=== PATIENT | female | born 1945 | race Caucasian/White ===

== ENCOUNTER 2016-11-27 21:34 | Emergency (ER) | payer OTHER, MEDICAID ==
[~2016-11-27] VITALS: Ht 149.9 cm; Wt 59.0 kg
[~2016-11-27 21:34] MED LIST: CELE200C PO; NOR10 PO; OMEP20CA10 PO; TRIA1CAP53 PO
[2016-11-27 21:48] VITALS: BP 127/70; PULSE 95; RESP 18; TEMP 98.7; O2SAT 97
[2016-11-27] MEDS ORDERED: NACL 0.9% 1,000 ML IV ONE (22:14)
[2016-11-27] MEDS ORDERED: ONDANSETRON HCL 4 MG/2 ML VIAL IVP ONE (22:15)
[2016-11-27] MEDS ORDERED: PANTOPRAZOLE SODIUM 40 MG/VIAL (PROTONIX) IVP ONE (22:15)
[2016-11-27 22:51] LABS: HEMATOCRIT 36.8 % (36-48); HEMOGLOBIN 12.7 g/dL (12.0-16.0); MEAN CORPUSCULAR HEMOGLOBIN 30 pg (27-31); MEAN CORPUSCULAR HGB CONC 35 % (32-36); MEAN CORPUSCULAR VOLUME 87 fL (79.0-98.0); PLATELET COUNT (AUTO) 184 K/uL (130-430); RED BLOOD CELL COUNT(AUTO) 4.25 MIL/uL (4.2-6.2); RED CELL DISTRIBUTION WIDTH 14.4 % (9.0-15.0); WHITE BLOOD COUNT (AUTO) 16.6 K/uL (4.8-10.8)
[2016-11-27 22:52] LABS: ANION GAP 8 (5-15); CALCIUM 8.7 mg/dL (8.4-11.0); CHLORIDE 100 mmol/L (98-107); CREATININE 1.14 mg/dL (0.55-1.30); GLUCOSE 134 mg/dL (70-99); SODIUM SERUM 136 mmol/L (136-145); UREA NITROGEN, BLOOD 11 mg/dL (8-21)
[2016-11-27 23:03] LABS: POTASSIUM 2.9 mmol/L (3.5-5.1)
[2016-11-27 23:10] LABS: INFLUENZA A&B ANTIGEN SCREEN NEGATIVE FOR A & B (NEGATIVE); STREPTOCOCCUS A SCREEN (RAPID) NEGATIVE (NEGATIVE)
[2016-11-27] MEDS ORDERED: KCL 20 mEq in 100 mL (PREMIX) 100 ML IV ONE (23:15)
[2016-11-27] MEDS ORDERED: POTASSIUM CHLORIDE 20 MEQ TAB.PRT.SR PO ONE (23:15)
[2016-11-27 23:20] LABS: BAND % (MANUAL) 8 % (0-6); LYMPHOCYTES % (MANUAL) 14 % (20-46); MONOCYTES % (MANUAL) 6 % (0-11)
[2016-11-27 23:21] LABS: BASOPHILS % (MANUAL) 0 % (0-2); EOSINOPHILS % (MANUAL) 0 % (0-7)
[2016-11-27] MEDS ORDERED: cefTRIAXone 1 GM IVPB PREMIX 50 ML IV ONE (23:30)
[2016-11-28 00:15] LABS: BILIRUBIN,URINE NEGATIVE (NEGATIVE); BLOOD, URINE NEGATIVE (NEGATIVE); COLOR,URINE YELLOW (YELLOW); GLUCOSE,URINE NEGATIVE (NEGATIVE); KETONES,URINE 1+ (NEGATIVE); LEUKOCYTE ESTERASE ,URINE 1+ (NEGATIVE); NITRITE, URINE NEGATIVE (NEGATIVE); PH,URINE 6.5 (5.0-8.0); PROTEIN URINE NEGATIVE (NEGATIVE); UROBILINOGEN,URINE 0.2 (0.2-1.0)
[2016-11-28 00:24] LABS: CLARITY/URINE SLIGHTLY HAZY (CLEAR)
[2016-11-28 00:26] LABS: RBC,URINE 0-3 /HPF (0-3)
[2016-11-28 00:27] LABS: BACTERIA,URINE FEW /HPF (None Seen); MUCUS,URINE None Seen /LPF (None Seen)
[2016-11-28] MEDS ORDERED: POTASSIUM CHLORIDE 20 MEQ TAB.PRT.SR PO ONE (01:00)
[2016-11-28 01:05] VITALS: BP 130/73; PULSE 89; RESP 20; TEMP 98.7; O2SAT 98
== END 2016-11-28 01:05 | disposition home or self-care (01) ==
LOC: SED 21:34
DX: J02.9 Acute pharyngitis, unspecified (principal); E87.6 Hypokalemia; K21.9 Gastro-esophageal reflux disease without esophagitis; I10 Essential (primary) hypertension; M54.30 Sciatica, unspecified side
CPT/HCPCS: 36415; 80048; 81000; 85007; 85027; 86403; 86710; 87081; 87086; 96365; 96368; 96375; 99284; C9113; J0696; J2405; J3480; J7030

== ENCOUNTER 2017-06-26 21:07 | Emergency (ER) | payer OTHER, MEDICAID ==
[~2017-06-26] VITALS: Ht 149.9 cm; Wt 63.5 kg
[2017-06-26 21:12] VITALS: BP_SYST 153
--- NOTE | 2017-06-26 21:14 | NUR ---
Placed in room 2. Placed on cardiac monitor technician, blood pressure machine and pulse oximeter. To gown for exam. Side rails up. Report given to Noam LEWIS.
--- NOTE | 2017-06-26 21:15 | NUR ---
Patient arrived to ED a/o x 4 with c/o right sided chest pain x 3 days. Patient reports 10/10 right sided chest wall pain radiating to the right shoulder. Denies cardiac history. Hx. of HTN. Patient appears in acute pain. Denies N/V. Skin warm and dry. c/o SOB upon lying down. Vital signs within normal limits at this time. Will continue to monitor.
--- NOTE | 2017-06-26 21:25 | NUR ---
20 gauge angiocath placed to right AC. Use of asceptic technique. Opsite placed over site. Blood return noted. Blood for lab drawn from site. Flushed with 10 cc of normal saline. No evidence of infiltration noted. Patient tolerated well.
--- NOTE | 2017-06-26 21:55 | NUR ---
ED MD Osea at bedside for medical evaluation.
[2017-06-26 22:13] LABS: BASOPHILS # (AUTO) 0.1 K/uL (0.0-0.2); BASOPHILS % (AUTO) 0.8 % (0.0-2.0); EOSINOPHILS # (AUTO) 0.3 K/uL (0.0-0.4); EOSINOPHILS % (AUTO) 2.8 % (0.0-4.0); HEMATOCRIT 39.1 % (36-48); HEMOGLOBIN 13.3 g/dL (12.0-16.0); LYMPHOCYTES # (AUTO) 3.5 K/uL (1.0-5.5); LYMPHOCYTES % (AUTO) 35.1 % (20.5-51.5); MEAN CORPUSCULAR HEMOGLOBIN 29 pg (27-31); MEAN CORPUSCULAR HGB CONC 34 % (32-36); MEAN CORPUSCULAR VOLUME 86 fL (79.0-98.0); MONOCYTES # (AUTO) 0.8 K/uL (0.0-1.0); MONOCYTES % (AUTO) 7.5 % (1.7-9.3); NEUTROPHILS # (AUTO) 5.3 K/uL (1.8-7.7); NEUTROPHILS % (AUTO) 53.8 % (40.0-70.0); PLATELET COUNT (AUTO) 233 K/uL (130-430); RED BLOOD CELL COUNT(AUTO) 4.55 MIL/uL (4.2-6.2); RED CELL DISTRIBUTION WIDTH 12.8 % (9.0-15.0)
--- NOTE | 2017-06-26 22:20 | NUR ---
Patient ambulated to restroom with assistance. Patient reports increased pain upon ambulation.
[2017-06-26 22:26] LABS: ANION GAP 6 (5-15); CALCIUM 9.8 mg/dL (8.4-11.0); CHLORIDE 106 mmol/L (98-107); GLUCOSE 114 mg/dL (70-99); SODIUM SERUM 142 mmol/L (136-145); UREA NITROGEN, BLOOD 15 mg/dL (8-21)
[2017-06-26 22:40] LABS: POTASSIUM 2.9 mmol/L (3.5-5.1)
[2017-06-26 22:41] LABS: TOTAL BILIRUBIN 0.3 mg/dL (0.0-1.0)
[2017-06-26 22:44] LABS: ALANINE AMINOTRANSFERASE 23 U/L (12-78); ASPARTATE AMINOTRANSFERASE 16 U/L (10-37)
[2017-06-26 22:45] LABS: ALBUMIN 4.3 g/dL (3.4-4.8)
--- NOTE | 2017-06-26 22:45 | NUR ---
Notified by lab, Potassium 2.9. ED MD Dinero made aware.
[2017-06-26 22:52] LABS: BILIRUBIN,URINE NEGATIVE (NEGATIVE); BLOOD, URINE NEGATIVE (NEGATIVE); CLARITY/URINE CLEAR (CLEAR); COLOR,URINE YELLOW (YELLOW); GLUCOSE,URINE NEGATIVE (NEGATIVE); KETONES,URINE NEGATIVE (NEGATIVE); LEUKOCYTE ESTERASE ,URINE 1+ (NEGATIVE); NITRITE, URINE NEGATIVE (NEGATIVE); PROTEIN URINE NEGATIVE (NEGATIVE); UROBILINOGEN,URINE 0.2 (0.2-1.0)
[2017-06-26 22:54] LABS: RBC,URINE 0-3 /HPF (0-3)
[2017-06-26 22:55] LABS: BACTERIA,URINE FEW /HPF (None Seen); MUCUS,URINE None Seen /LPF (None Seen)
[2017-06-26] MEDS ORDERED: KETOROLAC TROMETHAMINE 30 MG VIAL IVP ONE (23:30)
--- NOTE | 2017-06-26 23:30 | NUR ---
ED MD Osea at bedside for medical evaluation.
[2017-06-26] MEDS ORDERED: ONDANSETRON HCL 4 MG/2 ML VIAL IVP ONE (23:45)
[2017-06-26] MEDS ORDERED: HYDROmorphone 1 MG INJ. 1 MG/ML AMPUL IVP ONE (23:45)
[2017-06-27] VITALS: BP_SYST 147
--- NOTE | 2017-06-27 | NUR ---
Patient given written and verbal discharge instructions and verbalizes understanding. ER MD discussed with patient the results and treatment provided. Patient in stable condition. ID arm band removed. IV catheter removed intact and dressing applied, no active bleeding. Rx of ibuprofen and potassium chloride supplement given. Patient educated on pain management and to follow up with PMD. Pain Scale 2/10 tolerable for patient. Opportunity for questions provided and answered.
== END 2017-06-27 | disposition home or self-care (01) ==
LOC: SED 21:07
DX: S29.011A Strain of muscle and tendon of front wall of thorax, initial encounter (principal); K21.9 Gastro-esophageal reflux disease without esophagitis; I10 Essential (primary) hypertension; M94.0 Chondrocostal junction syndrome [Tietze]; E87.6 Hypokalemia; Z79.899 Other long term (current) drug therapy; X58.XXXA Exposure to other specified factors, initial encounter; Y93.89 Activity, other specified; Y92.89 Other specified places as the place of occurrence of the external cause; Y99.8 Other external cause status
CPT/HCPCS: 36415; 71010; 80053; 81000; 83880; 84484; 85025; 87086; 93005; 96374; 99285; J1885

== ENCOUNTER 2018-05-13 08:05 | Emergency (ER) | payer OTHER, MEDICAID ==
[~2018-05-13] VITALS: Ht 139.7 cm; Wt 63.5 kg
[2018-05-13 08:10] VITALS: BP_SYST 154
--- NOTE | 2018-05-13 08:10 | NUR ---
Patient in placed in bed 7, here for abdominal pain and cramping.
--- NOTE | 2018-05-13 08:12 | NUR ---
MD Chinchilla at bedside.
[2018-05-13 08:45] LABS: BASOPHILS # (AUTO) 0.1 K/uL (0.0-0.2); BASOPHILS % (AUTO) 0.5 % (0.0-2.0); EOSINOPHILS # (AUTO) 0.2 K/uL (0.0-0.4); EOSINOPHILS % (AUTO) 1.4 % (0.0-4.0); HEMATOCRIT 40.1 % (36-48); HEMOGLOBIN 13.5 g/dL (12.0-16.0); LYMPHOCYTES # (AUTO) 2.7 K/uL (1.0-5.5); LYMPHOCYTES % (AUTO) 22.8 % (20.5-51.5); MEAN CORPUSCULAR HEMOGLOBIN 29 pg (27-31); MEAN CORPUSCULAR HGB CONC 34 % (32-36); MEAN CORPUSCULAR VOLUME 88 fL (79.0-98.0); MONOCYTES # (AUTO) 0.6 K/uL (0.0-1.0); MONOCYTES % (AUTO) 5.5 % (1.7-9.3); NEUTROPHILS # (AUTO) 8.1 K/uL (1.8-7.7); NEUTROPHILS % (AUTO) 69.8 % (40.0-70.0); PLATELET COUNT (AUTO) 252 K/uL (130-430); RED BLOOD CELL COUNT(AUTO) 4.58 MIL/uL (4.2-6.2); WHITE BLOOD COUNT (AUTO) 11.7 K/uL (4.8-10.8)
[2018-05-13 08:59] LABS: BILIRUBIN,URINE NEGATIVE (NEGATIVE); BLOOD, URINE NEGATIVE (NEGATIVE); CLARITY/URINE CLEAR (CLEAR); COLOR,URINE YELLOW (YELLOW); GLUCOSE,URINE NEGATIVE (NEGATIVE); KETONES,URINE NEGATIVE (NEGATIVE); LEUKOCYTE ESTERASE ,URINE NEGATIVE (NEGATIVE); NITRITE, URINE NEGATIVE (NEGATIVE); PH,URINE 6.5 (5.0-8.0); PROTEIN URINE NEGATIVE (NEGATIVE); UROBILINOGEN,URINE 0.2 (0.2-1.0)
[2018-05-13 08:59] LABS: ANION GAP 8 (5-15); CALCIUM 8.9 mg/dL (8.4-11.0); CHLORIDE 104 mmol/L (98-107); CREATININE 0.96 mg/dL (0.55-1.30); GLUCOSE 108 mg/dL (70-99); SODIUM SERUM 140 mmol/L (136-145); UREA NITROGEN, BLOOD 12 mg/dL (8-21)
[2018-05-13 09:03] LABS: ALANINE AMINOTRANSFERASE 19 U/L (12-78); ALBUMIN 3.7 g/dL (3.4-4.8); ASPARTATE AMINOTRANSFERASE 18 U/L (10-37); LIPASE 162 U/L (73-393); TOTAL BILIRUBIN 0.9 mg/dL (0.0-1.0)
[2018-05-13] MEDS ORDERED: POTASSIUM CHLORIDE 20 MEQ/PKT PACKET PO ONE (09:15)
[2018-05-13] MEDS ORDERED: KETOROLAC TROMETHAMINE 30 MG VIAL IVP ONE (09:15)
[2018-05-13 09:33] VITALS: BP_SYST 155
--- NOTE | 2018-05-13 09:34 | NUR ---
Patient given written and verbal discharge instructions and verbalizes understanding. ER MD discussed with patient the results and treatment provided. Patient in stable condition. ID arm band removed. IV catheter removed intact and dressing applied, no active bleeding. Rx of lactulose given. Patient educated on pain management and to follow up with PMD. Pain Scale . Opportunity for questions provided and answered. Medication side effect fact sheet provided.
== END 2018-05-13 09:33 | disposition home or self-care (01) ==
LOC: SED 08:05
DX: K59.00 Constipation, unspecified (principal); E87.6 Hypokalemia; I10 Essential (primary) hypertension; K21.9 Gastro-esophageal reflux disease without esophagitis; Z79.899 Other long term (current) drug therapy
CPT/HCPCS: 36415; 74021; 80053; 81003; 83690; 85025; 96374; 99285; J1885

== ENCOUNTER 2018-11-14 17:24 | Emergency (ER) | payer OTHER, MEDICAID ==
[~2018-11-14] VITALS: Ht 149.9 cm; Wt 64.4 kg
[2018-11-14 17:24] VITALS: BP_SYST 130
--- NOTE | 2018-11-14 17:24 | NUR ---
BROUGHT BACK TO HALLWAY BED AND TRIAGED. REPORT GIVEN TO VIRY
[2018-11-14 17:30] VITALS: BP_SYST 135
--- NOTE | 2018-11-14 17:40 | NUR ---
patient arrived from home with full mentation. patient states "I've been feelin like dis for a couple days annabel. Everbody sick. my whole body hurts." patient states she did not have a flu shot this year and she doesn't get one. She says she got the flu shot a 3 years ago and got so sick she almost . patient is warm to the touch, and skin is green looking. no other complaint or injury. Addendum: 11/14/18 at 1836 by [email or web address] denies n/v/d of any kind. patient just has a bad productive cough.
--- NOTE | 2018-11-14 17:40 | NUR ---
WICHO Jackson at bedside examining patient.
--- NOTE | 2018-11-14 17:42 | NUR ---
INFLUENZA SWAB SENT TO LAB
[2018-11-14] MEDS ORDERED: ACETAMINOPHEN 500 MG TABLET PO ONE (17:45)
[2018-11-14] MEDS ORDERED: IBUPROFEN 600 MG TABLET PO ONE (17:45)
[2018-11-14] MEDS ORDERED: AZITHROMYCIN 250 MG TABLET PO ONE (18:15)
--- NOTE | 2018-11-14 18:49 | NUR ---
Patient given written and verbal discharge instructions and verbalizes understanding. ER MD discussed with patient the results and treatment provided. Patient in stable condition. Rx of Azithromycin given. Patient educated on pain management and to follow up with PMD. Pain Scale 4/10 and tolerable for patient. Opportunity for questions provided and answered. Medication side effect fact sheet provided.
== END 2018-11-14 18:49 | disposition home or self-care (01) ==
LOC: SED 17:24
DX: R05 Cough (principal); R09.81 Nasal congestion; M79.10 Myalgia, unspecified site; R50.9 Fever, unspecified; K21.9 Gastro-esophageal reflux disease without esophagitis; I10 Essential (primary) hypertension; Z79.899 Other long term (current) drug therapy
CPT/HCPCS: 36415; 71045; 86710; 99284; Q0144

== ENCOUNTER 2021-09-28 16:34 | Emergency (ER) | payer OTHER, MEDICAID ==
[~2021-09-28] VITALS: Ht 149.9 cm; Wt 66.2 kg
[~2021-09-28 16:34] MED LIST changes: -OMEP20CA10 PO; +OMEP20CA15 PO
[2021-09-28 16:55] VITALS: BP_SYST 194
--- NOTE | 2021-09-28 16:55 | NUR ---
Pt to Chair 1 in [facility] for evaluation.
--- NOTE | 2021-09-28 17:00 | NUR ---
Pt AAO and ambulatory reporting right knee pain and that she nearly fell today due to knee giving out. Pt reports that she fell three days ago because of same reason. Pt has history of hypertension and arthritis. Pt reports pain 10/10 on pain scale.
--- NOTE | 2021-09-28 17:05 | NUR ---
Report given to JOSHUA Santacruz who will assume care.
--- NOTE | 2021-09-28 17:30 | NUR ---
RECEIVED PATIENT IN HALLWAY BED. PT IS STABLE, NAD, VSS, SOME MILD LEG AND HIP PAIN. PT AWAITING ED MD ASSESSMENT AND DISPOSITION WITH PLAN OF CARE.
[2021-09-28] MEDS ORDERED: MORPHINE 2 MG/ML INJ. SYRINGE IM ONE (18:15)
[2021-09-28 19:45] VITALS: BP_SYST 155
--- NOTE | 2021-09-28 19:45 | NUR ---
Patient given written and verbal discharge instructions and verbalizes understanding. ER MD discussed with patient the results and treatment provided. Patient in stable condition. ID arm band removed. No IV No Rx given. Patient educated on pain management and to follow up with PMD. Pain Scale 4/10. Opportunity for questions provided and answered. Medication side effect fact sheet provided.
== END 2021-09-28 19:45 | disposition home or self-care (01) ==
LOC: SED 16:34
DX: S83.91XA Sprain of unspecified site of right knee, initial encounter (principal); M25.551 Pain in right hip; I10 Essential (primary) hypertension; K21.9 Gastro-esophageal reflux disease without esophagitis; Z79.899 Other long term (current) drug therapy; W01.0XXA Fall on same level from slipping, tripping and stumbling without subsequent striking against object, initial encounter; Y93.89 Activity, other specified; Y92.89 Other specified places as the place of occurrence of the external cause; Y99.8 Other external cause status
CPT/HCPCS: 72170; 73564; 96372; 99284; J2270

== ENCOUNTER 2023-12-18 14:28 | Inpatient (IN) | payer OTHER ==
[~2023-12-18] VITALS: Ht 149.9 cm; Wt 61.7 kg
[~2023-12-18 14:28] MED LIST changes: +PRED20TA PO
[2023-12-18 14:30] VITALS: BP_SYST 171; PULSE 77; RESP 18; TEMP 97.5; O2SAT 98
[2023-12-18 14:50] LABS: BASOPHILS # (AUTO) 0.1 K/uL (0.0-0.2); BASOPHILS % (AUTO) 1.5 % (0.0-2.0); EOSINOPHILS # (AUTO) 0.2 K/uL (0.0-0.4); EOSINOPHILS % (AUTO) 3.2 % (0.0-4.0); HEMATOCRIT 37.6 % (36-48); HEMOGLOBIN 12.9 g/dL (12.0-16.0); LYMPHOCYTES # (AUTO) 2.5 K/uL (1.0-5.5); MEAN CORPUSCULAR HEMOGLOBIN 30 pg (27-31); MEAN CORPUSCULAR HGB CONC 34 % (32-36); MEAN CORPUSCULAR VOLUME 86 fL (79.0-98.0); MONOCYTES # (AUTO) 0.6 K/uL (0.0-1.0); MONOCYTES % (AUTO) 8.4 % (1.7-9.3); NEUTROPHILS % (AUTO) 52.9 % (40.0-70.0); PLATELET COUNT (AUTO) 219 K/uL (130-430); RED BLOOD CELL COUNT(AUTO) 4.36 MIL/uL (4.2-6.2); RED CELL DISTRIBUTION WIDTH 14.3 % (9.0-15.0); WHITE BLOOD COUNT (AUTO) 7.5 K/uL (4.8-10.8)
[2023-12-18 15:02] LABS: ANION GAP 9 (5-15); CARBON DIOXIDE 28 mmol/L (23-29); CHLORIDE 105 mmol/L (98-107); CREATININE 1.03 mg/dL (0.55-1.30); GLUCOSE 104 mg/dL (74-106); POTASSIUM 3.9 mmol/L (3.5-5.1); SODIUM SERUM 142 mmol/L (136-145); UREA NITROGEN, BLOOD 12 mg/dL (8-21)
[2023-12-18 15:06] LABS: PROTHROMBIN TIME 10.4 SECS (9.5-12.5)
[2023-12-18 15:10] LABS: CREATINE KINASE, TOTAL 94 U/L (26-192); LIPASE 48 U/L (16-77)
[2023-12-18] MEDS: KETOROLAC TROMETHAMINE 15 MG VIAL IVP ONE (15:49)
[2023-12-18] MEDS: ASPIRIN 325 MG TABLET PO ONE (15:51)
[2023-12-18] MEDS: NITROGLYCERIN 0.4 MG TAB.SUBL SL ONE ×2 (15:59→17:40)
[2023-12-18 17:06] VITALS: BP_SYST 153; PULSE 75; O2SAT 98
[2023-12-18] MEDS: cefTRIAXone 1 GM in D5W 50 ML IV SCH (17:30)
[2023-12-18 17:51] LABS: BILIRUBIN,URINE NEGATIVE (NEGATIVE); BLOOD, URINE 1+ (NEGATIVE); CLARITY/URINE CLEAR (CLEAR); COLOR,URINE YELLOW (YELLOW); GLUCOSE,URINE NEGATIVE (NEGATIVE); KETONES,URINE NEGATIVE (NEGATIVE); LEUKOCYTE ESTERASE ,URINE NEGATIVE (NEGATIVE); NITRITE, URINE NEGATIVE (NEGATIVE); PH,URINE 7.5 (5.0-8.0); PROTEIN URINE NEGATIVE (NEGATIVE); UROBILINOGEN,URINE 0.2 (0.2-1.0)
[2023-12-18 18:28] LABS: WBC,URINE 0-3 /HPF (0-3)
[2023-12-18] MEDS: AZITHROMYCIN 500 MG in NS 250 ML IV SCH (18:28)
[2023-12-18 18:29] LABS: BACTERIA,URINE FEW /HPF (None Seen); MUCUS,URINE None Seen /LPF (None Seen)
[2023-12-18 20:05] VITALS: O2SAT 97
[2023-12-18] MEDS: IPRATROPIUM/ALBUTEROL SULFATE 3 ML AMPUL.NEB (DUONEB) INH SCH (20:12)
[2023-12-18] MEDS ORDERED: cefTRIAXone 1 GM VIAL ONE (21:15)
[2023-12-19] VITALS (9 sets, daily range): BP systolic 132–141; PULSE 73–78; RESP 16–18; TEMP 98.2–98.7; O2SAT 94–98
[2023-12-19] MEDS: TEMAZEPAM 15 MG CAPSULE PO SCH (01:20)
[2023-12-19] MEDS: IPRATROPIUM/ALBUTEROL SULFATE 3 ML AMPUL.NEB (DUONEB) INH PRN (02:07)
[2023-12-19 03:50] LABS: ANION GAP 7 (5-15); CALCIUM 8.5 mg/dL (8.4-11.0); CARBON DIOXIDE 27 mmol/L (23-29); CHLORIDE 107 mmol/L (98-107); CREATININE 1.07 mg/dL (0.55-1.30); GLUCOSE 100 mg/dL (74-106); POTASSIUM 3.4 mmol/L (3.5-5.1); SODIUM SERUM 141 mmol/L (136-145); UREA NITROGEN, BLOOD 13 mg/dL (8-21)
[2023-12-19 03:57] LABS: ALANINE AMINOTRANSFERASE 12 U/L (12-78); ALBUMIN 3.1 g/dL (3.4-4.8); ASPARTATE AMINOTRANSFERASE 12 U/L (10-37); CHOLESTEROL 184 mg/dL (<200); HDL CHOLESTEROL 63 mg/dL (>55); TOTAL BILIRUBIN 0.3 mg/dL (0.0-1.0); TOTAL PROTEIN, SERUM 5.9 g/dL (6.4-8.3); TRIGLYCERIDES 93 mg/dL (30-150)
[2023-12-19 04:20] LABS: BASOPHILS # (AUTO) 0.1 K/uL (0.0-0.2); BASOPHILS % (AUTO) 1.2 % (0.0-2.0); EOSINOPHILS # (AUTO) 0.3 K/uL (0.0-0.4); EOSINOPHILS % (AUTO) 3.6 % (0.0-4.0); HEMOGLOBIN 11.5 g/dL (12.0-16.0); LYMPHOCYTES # (AUTO) 2.7 K/uL (1.0-5.5); LYMPHOCYTES % (AUTO) 38.4 % (20.5-51.5); MEAN CORPUSCULAR HEMOGLOBIN 29 pg (27-31); MEAN CORPUSCULAR HGB CONC 34 % (32-36); MEAN CORPUSCULAR VOLUME 86 fL (79.0-98.0); MONOCYTES # (AUTO) 0.7 K/uL (0.0-1.0); NEUTROPHILS # (AUTO) 3.3 K/uL (1.8-7.7); NEUTROPHILS % (AUTO) 46.8 % (40.0-70.0); PLATELET COUNT (AUTO) 199 K/uL (130-430); RED BLOOD CELL COUNT(AUTO) 3.95 MIL/uL (4.2-6.2); RED CELL DISTRIBUTION WIDTH 14.1 % (9.0-15.0); WHITE BLOOD COUNT (AUTO) 7.1 K/uL (4.8-10.8)
[2023-12-19] MEDS: TRIAMTERENE/HYDROCHLOROTHIAZID 1 CAP CAPSULE (DYAZIDE37.5/25) PO SCH (08:55)
[2023-12-19] MEDS: amLODIPine BESYLATE 10 MG TABLET PO SCH (08:56)
[2023-12-19] MEDS: PANTOPRAZOLE SODIUM 40 MG TAB PO SCH (08:56)
[2023-12-19] MEDS: CELECOXIB 200 MG CAPSULE PO SCH (08:56)
[2023-12-19] MEDS ORDERED: OMEPRAZOLE Non-Formulary 20 MG CAPSULE.DR PO SCH (09:00)
[2023-12-19] MEDS ORDERED: predniSONE 20 MG TABLET PO SCH (09:00)
[2023-12-19] MEDS ORDERED: LISI40TA13 PO (09:23)
[2023-12-19] MEDS ORDERED: TRAM50TA2 PO (09:26)
[2023-12-19] MEDS ORDERED: LORA-258 PO (09:26)
[2023-12-19] MEDS: ASPIRIN 81 MG TAB.CHEW PO SCH (09:56)
[2023-12-19] MEDS ORDERED: ASPIRIN 81 MG TAB.CHEW ONE (09:57)
[2023-12-19] MEDS ORDERED: TEMAZEPAM 15 MG CAPSULE PO SCH (21:00)
[2023-12-19] MEDS: POTASSIUM CHLORIDE 20 MEQ TABLET.ER PO ONE (22:36)
[2023-12-19] MEDS ORDERED: MORPHINE 2 MG/ML INJ. SYRINGE IVP PRN (23:00)
[2023-12-19] MEDS ORDERED: NALOXONE HCL 0.4 MG/ML AMP (NARCAN) IVP PRN (23:00)
[2023-12-19] MEDS ORDERED: ACETAMINOPHEN 325 MG TABLET PO PRN (23:00)
[2023-12-20] VITALS (8 sets, daily range): BP systolic 138–148; PULSE 72–82; RESP 16–18; TEMP 97.2–98.2; O2SAT 96–100
[2023-12-20 04:55] LABS: BASOPHILS # (AUTO) 0.1 K/uL (0.0-0.2); BASOPHILS % (AUTO) 1.3 % (0.0-2.0); EOSINOPHILS # (AUTO) 0.4 K/uL (0.0-0.4); EOSINOPHILS % (AUTO) 4.8 % (0.0-4.0); HEMATOCRIT 36.6 % (36-48); HEMOGLOBIN 12.5 g/dL (12.0-16.0); LYMPHOCYTES # (AUTO) 2.4 K/uL (1.0-5.5); LYMPHOCYTES % (AUTO) 29.8 % (20.5-51.5); MEAN CORPUSCULAR HEMOGLOBIN 29 pg (27-31); MEAN CORPUSCULAR HGB CONC 34 % (32-36); MEAN CORPUSCULAR VOLUME 86 fL (79.0-98.0); MONOCYTES # (AUTO) 0.7 K/uL (0.0-1.0); MONOCYTES % (AUTO) 8.2 % (1.7-9.3); NEUTROPHILS # (AUTO) 4.6 K/uL (1.8-7.7); NEUTROPHILS % (AUTO) 55.9 % (40.0-70.0); PLATELET COUNT (AUTO) 209 K/uL (130-430); RED BLOOD CELL COUNT(AUTO) 4.26 MIL/uL (4.2-6.2); RED CELL DISTRIBUTION WIDTH 14.5 % (9.0-15.0); WHITE BLOOD COUNT (AUTO) 8.2 K/uL (4.8-10.8)
[2023-12-20 04:59] LABS: ERYTHROCYTE SEDIMENTATION RATE 5 MM/HR (0-20)
[2023-12-20 05:16] LABS: ANION GAP 8 (5-15); CALCIUM 9.3 mg/dL (8.4-11.0); CARBON DIOXIDE 26 mmol/L (23-29); CHLORIDE 108 mmol/L (98-107); CREATININE 1.06 mg/dL (0.55-1.30); GLUCOSE 101 mg/dL (74-106); POTASSIUM 4.1 mmol/L (3.5-5.1); SODIUM SERUM 142 mmol/L (136-145); UREA NITROGEN, BLOOD 13 mg/dL (8-21)
[2023-12-20] MEDS ORDERED: DOXY100C5 PO (15:27)
[2023-12-20] MEDS ORDERED: PRO40 PO (15:30)
[2023-12-20] MEDS ORDERED: POTASSIUM CHLORIDE 20 MEQ TABLET.ER PO ONE (16:45)
== END 2023-12-20 18:30 | disposition home or self-care (01) | DRG 206 ==
LOC: SED 14:28 → STU 16:13
PROVIDERS: ADMIT Internal Medicine; ATTEND Internal Medicine
DX: J98.4 Other disorders of lung (principal); E44.1 Mild protein-calorie malnutrition; I10 Essential (primary) hypertension; J42 Unspecified chronic bronchitis; K21.9 Gastro-esophageal reflux disease without esophagitis; E87.6 Hypokalemia; Z68.27 Body mass index [BMI] 27.0-27.9, adult
CPT/HCPCS: 36415; 71045; 71250-TC; 80048; 80053; 80061; 81000; 81001; 81015; 82550; 83690; 83735; 83880; 84484; 85025; 85379; 85610; 85651; 85730; 87040; 93005; 93306; 94640; 94760; 96374; 99285; G0378; J0456; J0696; J1885; J7050; J7060

== ENCOUNTER 2024-01-24 08:48 | Outpatient (CLI) | payer OTHER ==
[~2024-01-24 08:48] MED LIST changes: +DOXY100C5 PO; +LISI40TA13 PO; +LORA-258 PO; -PRED20TA PO; +PRO40 PO; +TRAM50TA2 PO; -TRIA1CAP53 PO
== END 2024-01-24 21:00 | disposition home or self-care (01) ==
LOC: SMA 08:48
PROVIDERS: ATTEND Family Medicine
DX: N63.12 Unspecified lump in the right breast, upper inner quadrant (principal); N63.13 Unspecified lump in the right breast, lower outer quadrant; N63.14 Unspecified lump in the right breast, lower inner quadrant; N63.21 Unspecified lump in the left breast, upper outer quadrant; R92.8 Other abnormal and inconclusive findings on diagnostic imaging of breast; N64.89 Other specified disorders of breast
CPT/HCPCS: 76641; 77066

== ENCOUNTER 2024-02-14 09:56 | Outpatient (CLI) | payer OTHER ==
[2024-02-14 10:38] LABS: HEMOGLOBIN 13.6 g/dL (12.0-16.0); LYMPHOCYTES # (AUTO) 2.7 K/uL (1.0-5.5); MONOCYTES # (AUTO) 0.5 K/uL (0.0-1.0); NEUTROPHILS # (AUTO) 3.7 K/uL (1.8-7.7); WHITE BLOOD COUNT (AUTO) 7.4 K/uL (4.8-10.8)
[2024-02-14 10:45] LABS: ALANINE AMINOTRANSFERASE 14 U/L (12-78); ALBUMIN 3.9 g/dL (3.4-4.8); ANION GAP 10 (5-15); ASPARTATE AMINOTRANSFERASE 17 U/L (10-37); CALCIUM 9.2 mg/dL (8.4-11.0); CARBON DIOXIDE 28 mmol/L (23-29); CHLORIDE 105 mmol/L (98-107); CHOLESTEROL 261 mg/dL (<200); GLUCOSE 97 mg/dL (74-106); HDL CHOLESTEROL 80 mg/dL (>55); POTASSIUM 3.6 mmol/L (3.5-5.1); SODIUM SERUM 143 mmol/L (136-145); TOTAL BILIRUBIN 0.6 mg/dL (0.0-1.0); TOTAL PROTEIN, SERUM 7.5 g/dL (6.4-8.3); TRIGLYCERIDES 92 mg/dL (30-150); UREA NITROGEN, BLOOD 13 mg/dL (8-21)
[2024-02-14 10:51] LABS: BASOPHILS # (AUTO) 0.1 K/uL (0.0-0.2); BASOPHILS % (AUTO) 1.5 % (0.0-2.0); EOSINOPHILS # (AUTO) 0.4 K/uL (0.0-0.4); EOSINOPHILS % (AUTO) 4.9 % (0.0-4.0); HEMATOCRIT 39.9 % (36-48); LYMPHOCYTES % (AUTO) 37.2 % (20.5-51.5); MEAN CORPUSCULAR HEMOGLOBIN 29 pg (27-31); MEAN CORPUSCULAR HGB CONC 34 % (32-36); MEAN CORPUSCULAR VOLUME 86 fL (79.0-98.0); MONOCYTES % (AUTO) 6.6 % (1.7-9.3); NEUTROPHILS % (AUTO) 49.8 % (40.0-70.0); PLATELET COUNT (AUTO) 237 K/uL (130-430); RED BLOOD CELL COUNT(AUTO) 4.66 MIL/uL (4.2-6.2)
== END 2024-02-14 19:01 | disposition home or self-care (01) ==
LOC: SLB 09:56
PROVIDERS: ATTEND Internal Medicine Interventional Cardiology
DX: I25.10 Atherosclerotic heart disease of native coronary artery without angina pectoris (principal); I11.9 Hypertensive heart disease without heart failure
CPT/HCPCS: 36415; 80053; 80061; 85025

== ENCOUNTER 2024-04-14 11:50 | Emergency (ER) | payer OTHER ==
[~2024-04-14] VITALS: Ht 165.1 cm; Wt 72.6 kg
[2024-04-14 12:15] VITALS: BP_SYST 139; PULSE 70; RESP 17; TEMP 97.5; O2SAT 98
[2024-04-14 12:26] LABS: BILIRUBIN,URINE NEGATIVE (NEGATIVE); BLOOD, URINE NEGATIVE (NEGATIVE); CLARITY/URINE CLEAR (CLEAR); COLOR,URINE YELLOW (YELLOW); GLUCOSE,URINE NEGATIVE (NEGATIVE); KETONES,URINE NEGATIVE (NEGATIVE); LEUKOCYTE ESTERASE ,URINE NEGATIVE (NEGATIVE); NITRITE, URINE NEGATIVE (NEGATIVE); PROTEIN URINE NEGATIVE (NEGATIVE); UROBILINOGEN,URINE 0.2 (0.2-1.0)
[2024-04-14 12:31] LABS: BASOPHILS # (AUTO) 0.1 K/uL (0.0-0.2); BASOPHILS % (AUTO) 1.4 % (0.0-2.0); EOSINOPHILS # (AUTO) 0.2 K/uL (0.0-0.4); EOSINOPHILS % (AUTO) 3.2 % (0.0-4.0); HEMATOCRIT 39.5 % (36-48); HEMOGLOBIN 13.2 g/dL (12.0-16.0); LYMPHOCYTES # (AUTO) 3.4 K/uL (1.0-5.5); LYMPHOCYTES % (AUTO) 44.3 % (20.5-51.5); MEAN CORPUSCULAR HEMOGLOBIN 29 pg (27-31); MEAN CORPUSCULAR HGB CONC 33 % (32-36); MEAN CORPUSCULAR VOLUME 87 fL (79.0-98.0); MONOCYTES # (AUTO) 0.6 K/uL (0.0-1.0); MONOCYTES % (AUTO) 7.7 % (1.7-9.3); NEUTROPHILS # (AUTO) 3.3 K/uL (1.8-7.7); NEUTROPHILS % (AUTO) 43.4 % (40.0-70.0); PLATELET COUNT (AUTO) 219 K/uL (130-430); RED BLOOD CELL COUNT(AUTO) 4.56 MIL/uL (4.2-6.2); RED CELL DISTRIBUTION WIDTH 13.9 % (9.0-15.0); WHITE BLOOD COUNT (AUTO) 7.7 K/uL (4.8-10.8)
[2024-04-14] MEDS: ONDANSETRON 4 MG ODT TAB PO ONE (12:34)
[2024-04-14 12:37] LABS: PROTHROMBIN TIME 10.4 SECS (9.5-12.5)
[2024-04-14 12:42] LABS: ALANINE AMINOTRANSFERASE 11 U/L (12-78); ALBUMIN 3.9 g/dL (3.4-4.8); ANION GAP 5 (5-15); ASPARTATE AMINOTRANSFERASE 13 U/L (10-37); CALCIUM 9.6 mg/dL (8.4-11.0); CARBON DIOXIDE 31 mmol/L (23-29); CHLORIDE 105 mmol/L (98-107); CREATININE 1.07 mg/dL (0.55-1.30); GLUCOSE 93 mg/dL (74-106); POTASSIUM 4.8 mmol/L (3.5-5.1); SODIUM SERUM 141 mmol/L (136-145); TOTAL BILIRUBIN 0.4 mg/dL (0.0-1.0); TOTAL PROTEIN, SERUM 7.3 g/dL (6.4-8.3); UREA NITROGEN, BLOOD 16 mg/dL (8-21)
[2024-04-14 12:57] LABS: AMYLASE 82 U/L (0-100); BILIRUBIN,DIRECT 0.1 mg/dL (0.0-0.3); LACTATE DEHYDROGENASE 168 U/L (81-234); LIPASE 57 U/L (16-77)
[2024-04-14] MEDS ORDERED: ONDA-8 TL (13:56)
[2024-04-14] MEDS ORDERED: OMEP20CA15 PO (13:56)
[2024-04-14 14:09] VITALS: BP_SYST 139; PULSE 70; RESP 17; TEMP 97.5; O2SAT 98
== END 2024-04-14 14:10 | disposition home or self-care (01) ==
LOC: SED 11:50
DX: R10.13 Epigastric pain (principal); R11.2 Nausea with vomiting, unspecified; K21.9 Gastro-esophageal reflux disease without esophagitis; I10 Essential (primary) hypertension; Z79.899 Other long term (current) drug therapy; Z79.2 Long term (current) use of antibiotics
CPT/HCPCS: 99284; 74176; 80076; 80048; 81001; 82150; 83615; 83690; 85025; 85610; 85730; 84484; 36415; 83605; 82397; Q0162; 81003

== ENCOUNTER 2024-04-25 12:54 | Emergency (ER) | payer OTHER ==
[~2024-04-25] VITALS: Ht 149.9 cm; Wt 59.0 kg
[~2024-04-25 12:54] MED LIST changes: +ONDA-8 TL
[2024-04-25 13:01] VITALS: BP_SYST 131; PULSE 87; RESP 16; TEMP 99.6; O2SAT 93
[2024-04-25 13:35] LABS: BILIRUBIN,URINE NEGATIVE (NEGATIVE); BLOOD, URINE NEGATIVE (NEGATIVE); CLARITY/URINE CLEAR (CLEAR); COLOR,URINE YELLOW (YELLOW); GLUCOSE,URINE NEGATIVE (NEGATIVE); KETONES,URINE NEGATIVE (NEGATIVE); LEUKOCYTE ESTERASE ,URINE NEGATIVE (NEGATIVE); NITRITE, URINE NEGATIVE (NEGATIVE); PROTEIN URINE NEGATIVE (NEGATIVE); UROBILINOGEN,URINE 0.2 (0.2-1.0)
[2024-04-25] MEDS ORDERED: NACL 0.9% 1,000 ML IV ONE (14:45)
[2024-04-25 15:18] LABS: BASOPHILS # (AUTO) 0.1 K/uL (0.0-0.2); BASOPHILS % (AUTO) 1.4 % (0.0-2.0); EOSINOPHILS # (AUTO) 0.2 K/uL (0.0-0.4); EOSINOPHILS % (AUTO) 3.3 % (0.0-4.0); HEMATOCRIT 37.7 % (36-48); HEMOGLOBIN 13.1 g/dL (12.0-16.0); LYMPHOCYTES # (AUTO) 1.3 K/uL (1.0-5.5); LYMPHOCYTES % (AUTO) 18.9 % (20.5-51.5); MEAN CORPUSCULAR HEMOGLOBIN 30 pg (27-31); MEAN CORPUSCULAR HGB CONC 35 % (32-36); MEAN CORPUSCULAR VOLUME 86 fL (79.0-98.0); MONOCYTES # (AUTO) 0.9 K/uL (0.0-1.0); NEUTROPHILS # (AUTO) 4.4 K/uL (1.8-7.7); NEUTROPHILS % (AUTO) 63.4 % (40.0-70.0); PLATELET COUNT (AUTO) 196 K/uL (130-430); RED BLOOD CELL COUNT(AUTO) 4.41 MIL/uL (4.2-6.2); RED CELL DISTRIBUTION WIDTH 14.1 % (9.0-15.0); WHITE BLOOD COUNT (AUTO) 6.9 K/uL (4.8-10.8)
[2024-04-25 15:50] LABS: ALANINE AMINOTRANSFERASE 15 U/L (12-78); ALBUMIN 3.9 g/dL (3.4-4.8); ANION GAP 7 (5-15); ASPARTATE AMINOTRANSFERASE 16 U/L (10-37); CARBON DIOXIDE 29 mmol/L (23-29); CHLORIDE 104 mmol/L (98-107); CREATININE 1.06 mg/dL (0.55-1.30); GLUCOSE 85 mg/dL (74-106); POTASSIUM 3.8 mmol/L (3.5-5.1); SODIUM SERUM 140 mmol/L (136-145); TOTAL BILIRUBIN 0.6 mg/dL (0.0-1.0); TOTAL PROTEIN, SERUM 7.2 g/dL (6.4-8.3); UREA NITROGEN, BLOOD 9 mg/dL (8-21)
[2024-04-25 15:53] LABS: BILIRUBIN,DIRECT 0.1 mg/dL (0.0-0.3)
[2024-04-25 16:11] LABS: INFLUENZA TYPE A Negative (NEGATIVE); INFLUENZA TYPE B NEGATIVE (NEGATIVE)
[2024-04-25] MEDS ORDERED: ALBMDI INH (16:22)
[2024-04-25] MEDS ORDERED: PRED50TA PO (16:22)
[2024-04-25] MEDS ORDERED: NIRM1TAB9 PO (16:22)
[2024-04-25 16:53] VITALS: BP_SYST 131; PULSE 87; RESP 16; TEMP 99.6; O2SAT 93
== END 2024-04-25 16:57 | disposition home or self-care (01) ==
LOC: SED 12:54
DX: U07.1 COVID-19 (principal); K21.9 Gastro-esophageal reflux disease without esophagitis; I10 Essential (primary) hypertension; Z79.899 Other long term (current) drug therapy; Z79.2 Long term (current) use of antibiotics
CPT/HCPCS: 36415; 71045; 80048; 80076; 81001; 81003; 83605; 84484; 85025; 87040; 93005; 99285